=== PATIENT | male | born 1985 | race Caucasian/White ===

== ENCOUNTER 2020-07-12 10:11 | Emergency (ER) | payer OTHER, SELFPAY ==
[2020-07-12 10:18] VITALS: BP 127/78; PULSE 72; RESP 18; TEMP 36.6; O2SAT 98; BMI 35.9
--- NOTE | 2020-07-12 11:31 | ED.BACK ---
HPI - Back Pain/Injury General Chief Complaint: Back Pain/Injury Stated Complaint: low back pain Time Seen by Provider: 07/12/20 11:31 Source: patient Mode of arrival: ambulatory Limitations: no limitations History of Present Illness HPI Narrative: 34 y/o male presenting with LBP that started today. 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 He states the pain is worse with movement and with palpation. He denies numbness, tinging, radiating down legs, no incontinence issues. He took 800 mg Motrin this morning with some improvement. He is concerned about going back to work and aggravating his pain. MD elicited complaint: back pain Related Data Previous Rx's Medication Instructions Recorded cyclobenzaprine 10 mg PO TID PRN #20 tab 07/12/20 hydrocodone-acetaminophen [[place]] 1 tab PO Q6H PRN #6 tab 07/12/20 ibuprofen 600 mg PO Q8H PRN #30 tab 07/12/20 lidocaine [Lidoderm] 1 patch TOPICAL DAILY #15 ea 07/12/20 Allergies Allergy/AdvReac Type Severity Reaction Status Date / Time Sulfa (Sulfonamide Allergy Unknown Hives Verified 07/12/20 10:24 Antibiotics) vancomycin [VANCOMYCIN] Allergy Unknown HIVES Verified 07/12/20 10:24 Review of Systems Review of Systems: Constitutional: No Fever, No Chills Cardiovascular: No Chest Pain, No SOB, No Orthopnea, No Edema Respiratory: No Cough, No Sputum, No Wheezing, No dyspnea Gastrointestinal: No Nausea, No Vomiting, No Diarrhea, No abdominal Pain, No Hematochezia, No Melena Genitourinary: No Dysuria, No Urinary Frequency, No Hematuria Musculoskeletal: + joint pain, + Myalgias Skin: No Skin Lesions, No rash Neuro: No Weakness, No Numbness, No Dizziness, No Headache Psych: No Anxiety/Panic, No Depression Heme/Lymph: No Bruising, No Lymphadenopathy Endocrine: No Polyuria, No Polydipsia PMFSH Past Medical History Attestation statement: The following information was validated with the patient. Medical History Kidney stones Surgical History (Updated 07/12/20 @ 10:20 by Shruthi Koroma) H/O knee surgery Social History Social History Advance Directives: No Advance Directives Information Provided: No Physical Exam Vital Signs: Vital Signs: Vital Signs Temp Pulse Resp BP Pulse Ox 07/12/20 10:18 97.9 F 72 18 127/78 98 Body Mass Index 35.9 Appearance: Alert. Oriented X3. No acute distress. HEENT: normal inspection CVS: Normal heart rate and rhythm. Pulses normal. Respiratory: No respiratory distress. Skin: Skin warm and dry. Normal skin color. Normal skin turgor. No rashes. Back: right mid-lumbar soft tissue tenderness and palpable muscle spasm. no spinal tenderness Extremities: no LE edema. full ROM. ambualtes with steady gait Neuro: Oriented X 3. No motor deficit. No sensory deficit. Course Course Course Narrative: patient with muscolskeletal back pain. appears comfortable and able to ambualte normally. will treat with NSAID, muscle relaxer, lidoderm, and short course of narcotic for severe pain. patient agrees to f/u with PCP if pain persists. instructed to return if pain worsens or if new symptoms develop MDM - Back Pain/Injury Differential Diagnosis Differential diagnosis: Likely lumbar radiculopathy, sciatica, strain of lumbar region, renal colic, pyelonephritis and thoracic back pain Critical Care Time Critical Care Time Critical Care Time: No Discharge Plan Discharge Clinical Impression: Strain of lumbar region Qualifiers: Encounter type: initial encounter Qualified Code(s): S39.012A - Strain of muscle, fascia and tendon of lower back, initial encounter Patient Disposition: Home, Self-Care Instructions: Low Back Strain (ED), Lower Back Exercises (ED) Additional Instructions: Use ice several times per day for the next 24 hours and then change to heat. Limit lifting anything >10 lbs, bending or twisting until your pain is improved. Take medications as prescribed for your pain. Follow up with your PCP in 1 week. If you develop worsening pain, numbness, tingling, incontinence or loss of function come back to the ER for further evaluation. Prescriptions: New cyclobenzaprine 10 mg tablet 10 mg PO TID PRN (Reason: Muscle Spasm) Qty: 20 RF: 0 lidocaine [Lidoderm] 5 % adhesive patch,medicated 1 patch topical DAILY Qty: 15 RF: 0 ibuprofen 600 mg tablet 600 mg PO Q8H PRN (Reason: pain) Qty: 30 RF: 0 hydrocodone-acetaminophen [[place]] 5-325 mg tablet 1 tab PO Q6H PRN (Reason: pain) Qty: 6 RF: 0 Stand Alone Forms: Work/School Release Interventions: ED Discharge Assessment Last Done: 07/12/20 11:54 Discharge Date/Time: 07/12/20 11:55
== END 2020-07-12 11:55 | disposition home or self-care (01) ==
PROVIDERS: Emergency Provider Emergency Medicine
DX: S39.012A Strain of muscle, fascia and tendon of lower back, initial encounter (principal); M54.6 Pain in thoracic spine; X50.0XXA Overexertion from strenuous movement or load, initial encounter; X50.1XXA Overexertion from prolonged static or awkward postures, initial encounter; X50.9XXA Other and unspecified overexertion or strenuous movements or postures, initial encounter; Y93.9 Activity, unspecified; Y92.59 Other trade areas as the place of occurrence of the external cause; Y99.0 Civilian activity done for income or pay; Z79.899 Other long term (current) drug therapy
CPT/HCPCS: 99283

== ENCOUNTER 2021-08-28 06:48 | Outpatient (REF) | payer OTHER, SELFPAY | END 2021-08-28 06:49 | disposition home or self-care (01) | LOC: HO.HMGCLDS 06:48 | PROVIDERS: PCP Internal Medicine; Visit Provider Internal Medicine | DX: Z20.822 Contact with and (suspected) exposure to COVID-19 (principal) | CPT/HCPCS: C9803; U0003; U0005 ==

== ENCOUNTER 2022-03-18 08:27 | Outpatient (REF) | payer OTHER, SELFPAY ==
[2022-03-18 11:16] LABS: MANUAL DIFF FLAG NO
[2022-03-18 11:22] LABS: Basophils Absolute Auto 0.1 X10*3/uL (0.0-0.2); Basophils Percent Auto 0.7 % (0-2); Eosinophils Absolute Auto 0.2 X10*3/uL (0.0-0.4); Eosinophils Percent Auto 1.9 % (0-4); Hematocrit 44.2 % (42.0-52.0); Hemoglobin 14.7 g/dl (14.0-18.0); Imm Gran Abs Auto 0.02 X10*3/uL (0.00-0.03); Imm Gran Pct Auto 0.2 % (0.0-0.4); Lymphocytes Absolute Auto 3.1 X10*3/uL (1.2-4.9); Mean Corpuscular HGB Conc 33.3 g/dl (31.0-36.0); Mean Corpuscular Hemoglobin 29.5 pg (27.0-33.0); Mean Corpuscular Volume 88.8 fL (80.0-98.0); Mean Platelet Volume 11.6 fL (9.4-12.4); Monocytes Absolute Auto 0.7 X10*3/uL (0.1-1.2); Monocytes Percent Auto 8.2 % (2-11); Neutrophils Absolute Auto 4.7 x10*3/uL (2.0-8.3); Platelet Count 238 X10*3/uL (160-400); Red Blood Count 4.98 X10*6/uL (4.60-5.80); Red Cell Distribution Width 12.8 % (11.0-16.0); White Blood Count 8.8 X10*3/uL (4.8-10.8)
[2022-03-18 11:44] LABS: Alanine Aminotransferase 24 U/L (0-40); Albumin Level 4.6 g/dL (3.5-5.0); Alkaline Phosphatase 48 U/L (39-117); Anion Gap 11 (12-20); Aspartate Amino Transferase 21 U/L (5-37); Bilirubin Total 0.4 mg/dL (0.0-1.0); Blood Urea Nitrogen 13 mg/dL (9-16); Calcium 9.3 mg/dL (8.4-10.2); Carbon Dioxide 27 mmol/L (22-29); Chloride 104 mmol/L (96-108); Estimated Glomerular Filt Rate > 60; Glucose Fasting 103 mg/dL (60-99); Sodium 138 mmol/L (135-145); Total Protein 7.4 g/dL (6.5-8.0)
[2022-03-18 12:08] LABS: Vitamin D 25-OH Total 19.7 ng/mL (>30)
[2022-03-18 12:16] LABS: Folate 13.1 ng/mL (> or = 4.0); Vitamin B12 452 pg/mL (200-900)
== END 2022-03-18 08:28 | disposition home or self-care (01) ==
LOC: HO.HMGCLDS 08:27
PROVIDERS: PCP Internal Medicine; Visit Provider Nurse Practitioner Family
DX: R25.1 Tremor, unspecified (principal)
CPT/HCPCS: 36415; 80053; 82306; 82607; 82746; 84443; 85025

== ENCOUNTER 2022-05-04 21:51 | Emergency (ER) | payer OTHER, SELFPAY ==
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
[2022-05-04 22:20] VITALS: BP 147/75; PULSE 77; RESP 18; TEMP 36.6; O2SAT 98
[2022-05-04 22:30] VITALS: BP 147/75; PULSE 77; RESP 18; TEMP 36.6; O2SAT 98; BMI 38.2
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
[2022-05-05 01:10] VITALS: BP 144/76; PULSE 59; RESP 16; TEMP 37.1; O2SAT 98
[2022-05-05] MEDS: Acetaminophen 325 MG TABLET 650 MG PO (01:25)
== END 2022-05-05 01:35 | disposition home or self-care (01) ==
PROVIDERS: Emergency Provider Emergency Medicine; PCP Internal Medicine
DX: S13.4XXA Sprain of ligaments of cervical spine, initial encounter (principal); V43.52XA Car driver injured in collision with other type car in traffic accident, initial encounter; M25.511 Pain in right shoulder; M25.561 Pain in right knee; Y93.89 Activity, other specified; Y92.414 Local residential or business street as the place of occurrence of the external cause; Y99.9 Unspecified external cause status; F17.210 Nicotine dependence, cigarettes, uncomplicated; F12.90 Cannabis use, unspecified, uncomplicated
CPT/HCPCS: 73030; 73560; 99283

== ENCOUNTER 2023-08-12 15:17 | Outpatient (AMB) | payer OTHER, SELFPAY ==
[2023-08-12 15:18] VITALS: BP 140/80; PULSE 86; TEMP 36.6; O2SAT 96; BMI 39.2
--- NOTE | 2023-08-12 15:18 | AM.OFFWIN_ITS ---
Intake Vital Signs 08/12/23 15:18 Height 6 ft Weight 289 lb 4 oz BMI 39.2 BP 140/80 H Blood Pressure Location Rt brachial Position Sitting Pulse 86 Pulse Source Pulse Oximeter Temp 97.8 F Temp Source Temporal Artery Scan Pulse Oximetry (%) 96 Oxygen Delivery Method Room Air Intake Visit Reasons: EP, Left knee pain Intake Note: pt is here for c.o left knee pain due to injury to it yesterday Patient Tobacco Use Status: Current everyday Tobacco user Allergies Sulfa (Sulfonamide Antibiotics) Allergy (Unknown, Verified 08/12/23 15:18) Hives vancomycin [VANCOMYCIN] Allergy (Unknown, Verified 08/12/23 15:18) HIVES Do you need a note to return to daycare/school/sports/work: Yes HPI HPI Comments History of Present Illness Details Patient is a 37-year-old male in today for a sick visit. He states that he injured his left knee at work 1 day prior to today's visit while jumping on of a box truck. He denies hearing any cracks, crepitus or pops. He is able to bear weight on the affected limb, however he walks with a bit of a limp. She does have a significant surgical history in that knee, of on ACL repair. He has taken regt-[id number] medicine with good effect. Patient's popliteal and pedal pulses are +2. DTR +2. Patient's skin is warm and dry. No erythema over the affected knee. No obvious deformities. Patient has full range of motion to flexion extension. Some crepitus heard during physical exam with flexion against resistance. There is some edema superior to the patella. Patient denies any numbness or tingling to the area. Denies any recent fevers. This is likely to be left knee sprain. This is unlikely to be a vascular occlusion, a neurovascular compromise, or pose any threat to the limb. Will obtain x-ray in office. Will wrap patient's knee and supportive device. Patient should follow-up with PCP if joint does not improve over the next week. Patient has been educated on side effects of the medication. He has been educated on signs of worsening symptoms and when to report back to the walk-in clinic or when to present to the emergency room. [facility] Medical History (Updated 08/12/23 @ 15:58 by MINI Love) Left knee pain Vitamin D deficiency Smoker Obesity (BMI 30-39.9) Kidney stones Surgical History H/O knee surgery Family History Father Throat cancer Mother No problems noted. Brother History of open heart surgery Paternal Grandmother Cancer Brother No problems noted. Son No problems noted. Daughter No problems noted. Social History Housing: House Alcohol intake: current Alcohol intake frequency: does not drink Patient Tobacco Use Status: Current everyday Tobacco user Cigarettes Per Day: 2 Second Hand Smoke Exposure: Yes Substance Use Type: Marijuana Current occupational status: employed Cognitive needs: No Hearing needs: No Vision needs: Yes (needs glasses) Review of Systems Const Details: Constitutional : No Weight loss, No Fever, No Chills, No Fatigue, No Malaise Cardiovascular : No Chest Pain, No SOB, No Dyspnea on Exertion, No Orthopnea, No Edema, No Palpitations Respiratory : No Cough, No Sputum, No Wheezing Musculoskeletal : Left knee pain. Skin : Left knee edema. Neuro : No Weakness, No Numbness, No Dizziness, No Headache All other systems reviewed and are negative Physical Exam Vital Signs: Last Vital Signs Temp 97.8 F 08/12/23 15:18 Pulse 86 08/12/23 15:18 BP 140/80 H 08/12/23 15:18 Pulse Ox 96 08/12/23 15:18 Oxygen Delivery Method Room Air 08/12/23 15:18 BMI result Body Mass Index 39.2 Vital signs reviewed and stable. Patient advised to follow up with PCP in regard to blood pressure. Assessment & Plan Assessment & Plan (1) Left knee pain: Comment: Patient had in office x-ray, does not look to be fracture left knee. Patient likely has left knee sprain, although his past medical history cannot rule out more significant ligament damage. Patient will be given meloxicam to be taken as directed for pain and swelling. Patient has been instructed to rest the affected limb. He has been instructed to continue to use supportive knee brace. He has been directed to follow up with his PCP, and that he likely will need an MRI to fully evaluate his knee. He has been educated on side effects of medications and had take them properly. She has been educated on signs of worsening symptoms and when to return to the walk-in or when to present to the ED. Code(s): M25.562 - Pain in left knee Qualifiers: Chronicity: acute Qualified Code(s): M25.562 - Pain in left knee Plan Patient should follow-up PCP. Medications: New meloxicam 15 mg PO DAILY 10 tabs 0RF Coding Level of Care Code Est Pt Level 3 (89741) Diagnoses Acute pain of left knee M25.562 Chronicity: acute Time Spent (min) 30
== END 2023-08-12 15:59 | disposition home or self-care (01) ==
PROVIDERS: PCP Internal Medicine; Visit Provider Nurse Practitioner Primary Care
DX: M25.562 Pain in left knee (principal)
CPT/HCPCS: 99213

== ENCOUNTER 2023-08-12 15:31 | Outpatient (REF) | payer OTHER, SELFPAY ==
--- NOTE | ~2023-08-12 | XR_ITS ---
EXAMINATION: XR KNEE, LEFT CLINICAL INFORMATION: Knee pain COMPARISON: 08/13/2019 TECHNIQUE: Four views of the left knee. FINDINGS: Changes of prior anterior cruciate ligament repair are again evident. Mild medial joint space narrowing is present with subchondral sclerosis. There is a moderate-sized suprapatellar effusion. No fracture or dislocation is detected. XR/XR knee LT 4V IMPRESSION: 1. Medial tibiofemoral osteoarthrosis. 2. Moderate suprapatellar effusion. 3. Prior ACL repair, with no significant change since 08/13/2019.
== END 2023-08-12 15:32 | disposition home or self-care (01) ==
LOC: HO.HMGCX 15:31
PROVIDERS: PCP Internal Medicine; Visit Provider Nurse Practitioner Primary Care
DX: M25.562 Pain in left knee (principal)
CPT/HCPCS: 73564

== ENCOUNTER 2025-06-21 08:06 | Outpatient (AMB) | payer OTHER, SELFPAY ==
[2025-06-21 08:10] VITALS: BP 142/80; PULSE 90; TEMP 36.6; O2SAT 99; BMI 38.6
--- NOTE | 2025-06-21 08:10 | MHC.OFFWIV ---
Intake Vital Signs 06/21/25 08:10 Height 6 ft Weight 285 lb BMI 38.6 BP 142/80 H Blood Pressure Location Lt brachial Position Sitting Pulse 90 Pulse Source Pulse Oximeter Temp 97.9 F Temp Source Oral Pulse Oximetry (%) 99 Intake Visit Reasons: EP-lt hand swollen & pain Intake Note: pt is here for for left thumb swollen with pain Patient Tobacco Use Status: Current everyday Tobacco user Allergies Sulfa (Sulfonamide Antibiotics) Allergy (Unknown, Verified 06/21/25 08:16) Hives vancomycin (VANCOMYCIN) Allergy (Unknown, Verified 06/21/25 08:16) HIVES Do you need a note to return to daycare/school/sports/work: Yes HPI HPI Comments History of Present Illness Details History of Present Illness - The patient is a 39-year-old male presenting with a left thumb injury. 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 - The patient reports inability to move the thumb and significant tenderness and bruising. - The condition has not improved since the incident, and the patient experiences pain with movement. - No specific interventions have been undertaken yet, and the patient has not sought prior medical evaluation. Physical Exam General: Cooperative, healthy appearing, comfortable, no acute distress and well developed Orientation: Patient oriented x3 Limitations: Limited movement in the left thumb due to injury Head: Normal to inspection Ears: Hearing grossly normal bilaterally Nose: Normal External nose present Face and sinus: Normal facial exam Eyes: Appearance normal, both eyes and all related structures Neck: Normal visual inspection and Yes full ROM Respiratory: Normal respiratory effort and able to speak in complete sentences. Skin: Bruising noted on the left hand between the fingers Neuro: Patient oriented x3 Extremities: left thumb with ecchymosis at the base, ttp, unable to do any ROM due to pain, NVI all fingers, ROM WNL didgits 2-4, cannot manager monitoring, no TTP hand or wrist, full ROM wrist. Review of Systems - Musculoskeletal: Reports inability to move the left thumb and pain with movement All systems reviewed and are unremarkable except as noted in HPI [facility] Medical History (Updated 06/21/25 @ 08:53 by Amparo Harris PA-C) Left knee pain Vitamin D deficiency Smoker Obesity (BMI 30-39.9) Kidney stones Surgical History H/O knee surgery Family History Father Throat cancer Mother No problems noted. Brother History of open heart surgery Paternal Grandmother Cancer Brother No problems noted. Son No problems noted. Daughter No problems noted. Social History Housing: House Alcohol intake: current Alcohol intake frequency: does not drink Patient Tobacco Use Status: Current everyday Tobacco user Cigarettes Per Day: 2 Second Hand Smoke Exposure: Yes Substance Use Type: Marijuana Current occupational status: employed Cognitive needs: No Hearing needs: No Vision needs: Yes (needs glasses) Physical Exam Vital Signs: Last Vital Signs Temp 97.9 F 06/21/25 08:10 Pulse 90 06/21/25 08:10 BP 142/80 H 06/21/25 08:10 Pulse Ox 99 06/21/25 08:10 BMI result Body Mass Index 38.6 Assessment & Plan Assessment & Plan (1) Injury of hand, left: Code(s): S69.92XA - Unspecified injury of left wrist, hand and finger(s), initial encounter Qualifiers: Encounter type: initial encounter Qualified Code(s): S69.92XA - Unspecified injury of left wrist, hand and finger(s), initial encounter Plan: Plan Patient was informed and verbally consented to the use of an ambient scribe for clinic note documentation during this visit. Left Thumb Injury - Obtain an x-ray of the left hand to assess for fractures or dislocations. - Return to the clinic after x-ray for further evaluation and management. - XR showed no acute fx or dislocation - Recommended RICE therapy for the next few weeks, provided thumb spica brace to use with ROM twice daily, wean off brace in coming 1-2 weeks. - if no improvement in pain over the next 1-2 weeks, follow up with her primary care doctor. (2) Injury of thumb, left: Code(s): S69.92XA - Unspecified injury of left wrist, hand and finger(s), initial encounter Qualifiers: Encounter type: initial encounter Qualified Code(s): S69.92XA - Unspecified injury of left wrist, hand and finger(s), initial encounter Plan: as above (3) Thumb contusion: Code(s): S60.019A - Contusion of unspecified thumb without damage to nail, initial encounter Qualifiers: Encounter type: initial encounter Damage to nail status: without damage Laterality: left Qualified Code(s): S60.012A - Contusion of left thumb without damage to nail, initial encounter Plan: as above Orders: Orders XR hand LT min 3V Today S69.92XA - Unspecified injury of left wrist, hand and finger(s), initial encounter Coding Level of Care Code Est Pt Level 4 (52155) Diagnoses Injury of left hand, initial encounter S69.92XA Encounter type: initial encounter Injury of left thumb, initial encounter S69.92XA Encounter type: initial encounter Contusion of left thumb without damage to nail, initial encounter S60.012A Encounter type: initial encounter Damage to nail status: without damage Laterality: left
== END 2025-06-21 08:59 | disposition home or self-care (01) ==
PROVIDERS: PCP Internal Medicine; Visit Provider Physician Assistant
DX: S69.92XA Unspecified injury of left wrist, hand and finger(s), initial encounter (principal); S60.012A Contusion of left thumb without damage to nail, initial encounter; Z04.2 Encounter for examination and observation following work accident

== ENCOUNTER 2025-06-21 08:06 | Outpatient (REF) | payer OTHER, SELFPAY ==
--- NOTE | ~2025-06-21 | XR_ITS ---
EXAMINATION: XR HAND, LEFT CLINICAL INFORMATION: S69.92XA - Unspecified injury of left wrist, hand and finger(s), initial... COMPARISON: None available. TECHNIQUE: PA, lateral, and oblique views of the left hand. FINDINGS: The bones and soft tissues are normal. No fracture. Alignment is anatomic. Joint spaces are maintained. No erosions or soft tissue calcifications. XR/XR hand LT min 3V IMPRESSION: Unremarkable left hand. Electronically signed by: Bhavin Ford MD 06/21/2025 08:46 AM EDT RP
== END 2025-06-21 08:07 | disposition home or self-care (01) ==
LOC: HO.HMGCX 08:06
PROVIDERS: PCP Internal Medicine; Visit Provider Physician Assistant
DX: S60.012A Contusion of left thumb without damage to nail, initial encounter (principal); W31.2XXA Contact with powered woodworking and forming machines, initial encounter; Y92.79 Other farm location as the place of occurrence of the external cause; Y99.0 Civilian activity done for income or pay
CPT/HCPCS: 73130

== ENCOUNTER → 2025-06-21 08:34 | Outpatient (BNV) | payer OTHER, SELFPAY | PROVIDERS: PCP Internal Medicine; Visit Provider Radiology Diagnostic Radiology | DX: M79.642 Pain in left hand (principal) | CPT/HCPCS: 73130 ==